=== PATIENT | female | born 1960 | race Caucasian/White ===

== ENCOUNTER 2018-01-27 11:20 | Inpatient (IN) | payer MEDICARE, OTHER ==
--- NOTE | ~2018-01-27 | PR ---
[place], [place] PROGRESS NOTE NAME: SONU PERALTA UNIT #: [id number] ROOM: 316 DOCTOR: ÁLVARO MAY MD BIRTHDATE: [birth year] DOS: 01/30/2018 CHIEF COMPLAINT: "Oh, I cannot wait to get back home." SUMMARY OF THE VISIT: The patient was interviewed in the dining area. She was already finished with her breakfast and was sitting there waiting. She engaged readily in conversation and reports to me that she is anxious to go back to [place]. She reports sleeping well, eating well and voices no other complaints. She was pleasant and cooperative and was not demanding in anyway. There was no agitation or aggression, no mood lability. No hostility. MENTAL STATUS: She is alert and oriented with some time gaps, but overall intact. Mood does seem to be euthymic. Affect appropriate. There is no lee, hypomania or psychosis. PLAN: I will maintain her current psychotropic regimen, continue to engage in individual and masterson milieu activity, returning to the least restrictive environment when psychiatrically stable. ÁLVARO MAY MD CM:PNTRANS 6 ÁLVARO MAY MD 01/30/1845 interface
--- NOTE | ~2018-01-27 | WRIGHTHP ---
[place], [place] PATIENT HISTORY AND PHYSICAL EXAM NAME: SONU PERALTA UNIT #: [id number] ROOM: 316 DOCTOR: ÁLVARO MAY MD BIRTHDATE: [birth year] DOS: 01/28/2018 INITIAL PSYCHIATRIC EVALUATION CHIEF COMPLAINT: "I am not suicidal. I want to go back to [place]. I want to be with my friends and be able to smoke." HISTORY OF PRESENT ILLNESS: This is a 57-year-old white female known to me from her stay at [facility] in [place], [place]. The patient apparently had thrown herself from her wheelchair in an attempt to commit suicide and voiced a desire to . [facility] was fearful that she would hurt herself and did send her into us to further evaluate lethality. The patient apparently has a significant history of quadriplegic spastic cerebral palsy as well as a history of TIAs, CVA and cerebral arterial sclerosis. She is episodically noncompliant with her medication. PAST MEDICAL HISTORY: Remarkable for the cerebral arterial sclerosis, folic acid deficiency, hypercoagulable state, lumbar radiculopathy, microcytic anemia, polyneuropathy, TIAs and vitamin D deficiency. ALLERGIES: She lists allergies to IBUPROFEN. SOCIAL HISTORY: She currently is a cigarette smoker. She does not drink alcohol or use illicit drugs. STRENGTHS: Good verbal skills, supportive living environment. WEAKNESSES: Chronic severe mental health issues and poor coping skills. MENTAL STATUS: She is alert and oriented with some minor time gaps. Mood does seem to be somewhat depressed with anxious overtones. She is somewhat help rejecting and is very negative. There is no lee or hypomania noted. She is somewhat guarded and suspicious, so I was not able to elicit much in terms of any psychotic symptoms. Short-term memory does have gaps. DIAGNOSIS: Schizoaffective disorder. PLAN: I have already started her on Invega to augment the Cymbalta. Routine screening examination shows her to have a folate level of 5.05. I will add folic acid 1 mg a day, attempt to engage her in individual and masterson milieu activity with the plan to return back to [facility] when psychiatrically stable. [place], [place] PATIENT HISTORY AND PHYSICAL EXAM NAME: SONU PERALTA UNIT #: [id number] ROOM: [facility] DOCTOR: ÁLVARO MAY MD BIRTHDATE: [birth year] ÁLVARO MAY MD CM:HISPHYS:PATIENT HISTORY AND PHYSICAL EXAMINATION [id number] ÁLVARO MAY MD 01/28/18 1130 interface
--- NOTE | ~2018-01-27 | DS ---
[place], [place] DISCHARGE SUMMARY [id number] UNIT #: [id number] ROOM: 316 DOCTOR: ÁLVARO MAY MD BIRTHDATE: [birth year] DOS: 01/31/2018 CHIEF COMPLAINT: "I am not suicidal, I want to go back to [place], I want to be with my friends and be able to smoke." HISTORY OF PRESENT ILLNESS: This is a 57-year-old white female known to me from her stay at [facility] in [place], [place]. The patient apparently had thrown herself from her wheelchair in an attempt to commit suicide and voiced a desire to . The senior care was fearful that she would hurt herself and did send her to the [facility] for further evaluation. The patient apparently has a history of quadriplegic spastic cerebral palsy as well as a history of TIA, CVA and cerebral arterial sclerosis. The patient is episodically noncompliant with her medications. She is admitted to the Behavioral Health Care Unit to rule out any organic factors, to assess lethality, to engage in individual and masterson milieu activity and to determine the least restrictive environment to which she could be discharged. SUMMARY OF HOSPITAL COURSE: The patient was admitted to the unit where from the beginning convincingly denied suicidal thoughts, stating that she is frustrated with the care that she is getting at [place] and sometimes will say things that she does not mean. She was maintained on her Cymbalta. Folic acid level upon admission was low at 5.05, so folic acid 1 mg a day was added. Additionally, Invega 6 mg a day was added to attempt to stabilize her mood After successfully monitoring her for potential suicidal thoughts, it was felt that the patient indeed was not lethal and could easily return back to [facility] for further care. MENTAL STATUS AT DISCHARGE: The patient is alert and oriented with some mild time gaps. Mood does seem to be trending towards euthymia. Affect is more appropriate. There is no lee, hypomania or psychosis. Memory for the most part is intact. FINAL DIAGNOSIS: Schizoaffective disorder. PLAN: All of her scripts have been printed and will be sent with her. At the time of discharge, she was psychiatrically stable and there were no acute medical issues. I will be the treating psychiatrist upon record when she returns to [place]. [place], [place] DISCHARGE SUMMARY NAME: SONU PERALTA UNIT #: [id number] ROOM: 316 DOCTOR: ÁLVARO MAY MD BIRTHDATE: [birth year] ÁLVARO MAY MD CM:JOANNE 0 ÁLVARO MAY MD 01/31/18900 interface
[2018-01-27] MEDS ORDERED: CYMBALTA60 MG PO (20:04)
[2018-01-27] MEDS ORDERED: ELIQUIS5 M1 PO (20:10)
[2018-01-27] MEDS ORDERED: VITAMIN D5000 UNI1 PO (20:13)
[2018-01-27] MEDS ORDERED: COLCHICINE0.6 M2 PO (20:14)
[2018-01-27] MEDS ORDERED: LACTULOSE20 GM/30 M PO (20:17)
[2018-01-27] MEDS ORDERED: CYCLOBENZAPRINE10 MG PO (20:17)
[2018-01-27] MEDS ORDERED: BACLOFEN5 MG PO (20:18)
[2018-01-27] MEDS ORDERED: BENGAY ULTRA S1 EACH T (20:19)
[2018-01-27] MEDS ORDERED: AQUAPHOR396 GM T (20:20)
[2018-01-27 22:58] VITALS: BP 136/78
[2018-01-27 23:01] VITALS: BP 136/78
[2018-01-28 06:17] LABS: BASO # 0.1 10*3/uL (0.0-0.1); BASO % 1.1 % (0.0-1.0); HEMATOCRIT 31.8 % (37.0-47.0); HEMOGLOBIN 10.6 g/dl (12.0-16.0); LYMPH # 1.7 10*3/uL (1.3-4.4); LYMPH % 37.3 % (27.0-41.0); MEAN CELL VOLUME 77.4 fl (81.0-99.0); MEAN CORPUSCULAR HGB 25.8 pg (27.0-31.0); MEAN CORPUSCULAR HGB CONC 33.3 g/dl (33.0-37.0); MEAN PLATELET VOLUME 12.6 fl (9.6-12.3); MONO # 0.3 10*3/uL (0.1-1.0); MONO % 7.4 % (3.0-9.0); NEUT # 2.4 10*3/uL (2.3-7.9); NEUT % 53.5 % (47.0-73.0); PLATELET COUNT AUTOMATED 110 10*3/uL (130-400); RED BLOOD COUNT 4.11 10*6/uL (4.10-5.10); RED CELL DISTRI WIDTH 13.6 % (0-14.5); WHITE BLOOD COUNT 4.5 10*3/uL (4.8-10.8)
[2018-01-28 06:27] LABS: ALBUMIN 3.4 gm/dl (3.1-4.5); POTASSIUM 2.8 mmol/L (3.5-5.1)
[2018-01-28 06:38] LABS: CREATININE 1.24 mg/dL (0.55-1.02); THYROID STIM HORMONE (HS) 1.86 uIU/ml (0.358-4.75); TOTAL PROTEIN 6.7 gm/dL (6.4-8.2)
[2018-01-28 07:46] VITALS: BP 146/80
[2018-01-28 09:00] LABS: VITAMIN D, 25-HYDROXY 39.3 ng/mL (30-100)
[2018-01-28 20:21] VITALS: BP 125/75
[2018-01-28 20:49] LABS: BILIRUBIN NEGATIVE (NEGATIVE); BLOOD NEGATIVE (NEGATIVE); CLARITY CLEAR (CLEAR); COLOR YELLOW (YELLOW); GLUCOSE NEGATIVE (NEGATIVE); KETONE NEGATIVE (NEGATIVE); LEUKO ESTERASE TRACE (NEGATIVE); NITRITE NEGATIVE (NEGATIVE); UROBILINOGEN 0.2 E.U./dl (0.2-1.0)
[2018-01-28 20:58] LABS: BACTERIA 2+; RBC 0-2 rbc/hpf (0-2)
[2018-01-29 07:35] VITALS: BP 150/87
[2018-01-29 19:23] VITALS: BP 140/84
[2018-01-30 07:28] VITALS: BP 144/86
[2018-01-30 19:17] VITALS: BP 145/86
[2018-01-31 07:24] VITALS: BP 136/84
[2018-01-31] MEDS ORDERED: DULOXETINE HCL60 MG PO (08:48)
[2018-01-31] MEDS ORDERED: PALIPERIDONE ER6 MG PO (08:48)
[2018-01-31] MEDS ORDERED: LACTULOSE20 GM/30 M PO (08:48)
== END 2018-01-31 17:22 | DRG 885 ==
LOC: 3N 11:20
PROVIDERS: Psychiatry & Neurology Psychiatry
DX: F25.0 Schizoaffective disorder, bipolar type (principal); G80.0 Spastic quadriplegic cerebral palsy; D68.59 Other primary thrombophilia; G62.9 Polyneuropathy, unspecified; L97.519 Non-pressure chronic ulcer of other part of right foot with unspecified severity; E55.9 Vitamin D deficiency, unspecified; D72.89 Other specified disorders of white blood cells; E87.6 Hypokalemia; N18.3 Chronic kidney disease, stage 3 (moderate); T14.91XA Suicide attempt, initial encounter; E78.5 Hyperlipidemia, unspecified; F41.9 Anxiety disorder, unspecified; F32.9 Major depressive disorder, single episode, unspecified; Z86.73 Personal history of transient ischemic attack (TIA), and cerebral infarction without residual deficits; Z90.49 Acquired absence of other specified parts of digestive tract; Z88.6 Allergy status to analgesic agent; Z79.899 Other long term (current) drug therapy; Z72.0 Tobacco use; Z71.6 Tobacco abuse counseling; X83.8XXA Intentional self-harm by other specified means, initial encounter; Y93.89 Activity, other specified; Y92.89 Other specified places as the place of occurrence of the external cause; Y99.8 Other external cause status